=== PATIENT | female | born 1975 | race Caucasian/White ===

== ENCOUNTER 2016-11-07 11:02 | Emergency (ER) | payer MEDICAID ==
[~2016-11-07] VITALS: Ht 154.9 cm; Wt 63.6 kg
[2016-11-07 11:09] VITALS: Ht 154.9 cm; Wt 63.6 kg
[2016-11-07] MEDS ORDERED: KETOROLAC 30 MG INJ IM STA (12:01)
--- NOTE | 2016-11-07 13:09 | RADRPT ---
PROCEDURE: XR Chest AP portable CLINICAL INDICATION: Pain TECHNIQUE: An AP portable radiograph of the chest was submitted. COMPARISON: None. FINDINGS: Support Hardware: None Cardiovascular: The cardiovascular silhouette appears unremarkable. Lung Valle: The lung valle appear clear with no nodule, alveolar infiltrate, or interstitial promi nence evident. Pleural Spaces: No pneumothorax or pleural effusion is identified. Osseous Structures: The osseous structures appear intact. Soft Tissues: The soft tissues appear unremarkable. IMPRESSION: Unremarkable portable chest. Physician Surya Date Time Electronically viewed and signed by Physician Surya on 11/07/2016 13:09 /
[2016-11-07] MEDS ORDERED: IBUP400T22 PO (13:17)
[2016-11-07] MEDS ORDERED: CYCL-319 PO (13:17)
--- NOTE | 2016-11-07 13:22 | RADRPT ---
PROCEDURE: XR Right Shoulder CLINICAL INDICATION: Pain TECHNIQUE: AP internal and external rotation views were submitted along with a Y-view. COMPARISON: None FINDINGS: Osseous structures: appear well mineralized and intact with no fracture or destructive process iden tified. Joint spaces: The glenohumeral joint appears unremarkable. The AC joint appears normal. Soft tissues: appear unremarkable. IMPRESSION: Unremarkable right shoulder. Physician Surya Date Time Electronically viewed and signed by Mirian Brown Physician on 11/07/2016 13:21 /
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
== END 2016-11-07 13:35 | disposition home or self-care (01) ==
LOC: FTE 11:02
DX: M25.511 Pain in right shoulder (principal); Z04.1 Encounter for examination and observation following transport accident
CPT/HCPCS: 71010; 73030; J1885; 96372